=== PATIENT | female | born 1995 | race Caucasian/White ===

== ENCOUNTER 2017-11-11 21:21 | Emergency (ER) | payer OTHER ==
[~2017-11-11] VITALS: Ht 149.9 cm; Wt 64.4 kg
[2017-11-11 21:22] VITALS: BP 121/76
--- NOTE | 2017-11-11 21:29 | NUR ---
PT TAKEN TO BED 4
--- NOTE | 2017-11-11 21:29 | NUR ---
PATIENT PRESENTS TO ED WITH BILATERAL LOWER BACK PAIN X4 DAYS. PT STATES ACHING/TWISTING/CRAMPING PAIN. PT SATES NO VAGINAL DRAINAGE OR CHANGE IN URINARY PATTERN. DENIES N/V/D; SKIN IS PINK/WARM/DRY; AAOX4 WITH EVEN AND STEADY GAIT; LUNGS CLEAR BL; HR EVEN AND REGULAR; PT DENIES ANY FEVER, CP, SOB, OR COUGH AT THIS TIME; PATIENT STATES PAIN OF 7/10 AT THIS TIME; VSS; PATIENT POSITIONED FOR COMFORT; HOB ELEVATED; BEDRAILS UP X2; BED DOWN. ER MD MADE AWARE OF PT STATUS. CONTINUE TO MONITOR.
[2017-11-11] MEDS ORDERED: KETOROLAC 60 MG/2 ML VIAL IM ONE (22:10)
--- NOTE | 2017-11-11 23:19 | NUR ---
Dr. Paredes evaluating paient at bedside.
[2017-11-11 23:30] VITALS: BP 121/76
--- NOTE | 2017-11-11 23:30 | NUR ---
Patient discharged with v/s stable. Written and verbal after care instructions given and explained. Patient verbalized understanding. Ambulatory with steady gait. All questions addressed prior to discharge. Advised to follow up with PMD.
== END 2017-11-11 23:30 | disposition home or self-care (01) ==
LOC: MED 21:21
DX: M54.5 Low back pain (principal)
CPT/HCPCS: 81025; 96372; 99283; J1885

== ENCOUNTER 2021-01-07 12:11 | Emergency (ER) | payer OTHER ==
[~2021-01-07] VITALS: Ht 149.9 cm; Wt 63.5 kg
[2021-01-07 12:38] VITALS: BP 120/82
[2021-01-07] MEDS ORDERED: IBUP-2213 PO (13:26)
[2021-01-07 13:58] VITALS: BP 120/82
== END 2021-01-07 13:59 | disposition home or self-care (01) ==
LOC: MED 12:11
DX: U07.1 COVID-19 (principal)
CPT/HCPCS: 99283; U0003

== ENCOUNTER 2021-04-12 12:41 | Emergency (ER) | payer OTHER ==
[~2021-04-12] VITALS: Ht 149.9 cm; Wt 63.5 kg
[~2021-04-12 12:41] MED LIST: IBUP-2213 PO
[2021-04-12 12:49] VITALS: BP 114/80
--- NOTE | 2021-04-12 12:49 | NUR ---
DR RODRÍGUEZ AT BEDSIDE EVALUATING PT
[2021-04-12] MEDS ORDERED: NACL 0.9% 1,000 ML IV ONE (12:55)
--- NOTE | 2021-04-12 13:03 | NUR ---
XRAY AT BEDSIDE
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
--- NOTE | 2021-04-12 13:11 | NUR ---
Blood sample collected, handed to CPT Juan at ER bedside
--- NOTE | 2021-04-12 13:11 | NUR ---
EMT at bedside for EKG
[2021-04-12 13:20] LABS: BASOPHILS % (AUTO) 0.3 % (0.0-2.0); EOSINOPHILS # (AUTO) 0.1 K/uL (0-0.4); EOSINOPHILS % (AUTO) 1.1 % (0.0-4.0); HEMATOCRIT 35.4 % (36-48); HEMOGLOBIN 11.7 g/dL (12.0-16.0); LYMPHOCYTES # (AUTO) 1.9 K/uL (2.5-16.5); LYMPHOCYTES % (AUTO) 26.2 % (20.5-51.1); MEAN CORPUSCULAR HEMOGLOBIN 28 pg (27-31); MEAN CORPUSCULAR HGB CONC 33 g/dL (33-37); MEAN CORPUSCULAR VOLUME 85.2 fL (80-94); MONOCYTES # (AUTO) 0.4 K/uL (0.8-1.0); MONOCYTES % (AUTO) 5.8 % (1.7-9.3); NEUTROPHILS # (AUTO) 4.9 K/uL (1.8-7.7); NEUTROPHILS % (AUTO) 66.6 % (42.2-75.2); PLATELET COUNT (AUTO) 241 K/uL (140-450); RED BLOOD CELL COUNT(AUTO) 4.16 MIL/uL (4.20-5.40); RED CELL DISTRIBUTION WIDTH 14.5 % (11.6-13.7); WHITE BLOOD COUNT (AUTO) 7.4 K/uL (4.8-10.8)
[2021-04-12 13:36] LABS: ALBUMIN 3.2 g/dL (3.4-5.0); ANION GAP 11.6 (8-16); CARBON DIOXIDE 27.1 mmol/L (21-32); CREATININE 0.7 mg/dL (0.6-1.3); POTASSIUM 3.7 mmol/L (3.5-5.1); TOTAL BILIRUBIN 0.2 mg/dL (0.0-1.0)
--- NOTE | 2021-04-12 13:52 | NUR ---
PT UNABLE TO GIVE URINE AT THIS TIME
--- NOTE | 2021-04-12 14:28 | NUR ---
Patient discharged with v/s stable. Written and verbal after care instructions given and explained. Patient verbalized understanding. Ambulatory with FRIEND to car. All questions addressed prior to discharge. Advised to follow up with PMD.
[2021-04-12 14:29] VITALS: BP 114/80
== END 2021-04-12 14:28 | disposition home or self-care (01) ==
LOC: MED 12:41
DX: S00.511A Abrasion of lip, initial encounter (principal); R55 Syncope and collapse; F15.90 Other stimulant use, unspecified, uncomplicated; Z79.899 Other long term (current) drug therapy; W18.30XA Fall on same level, unspecified, initial encounter; Y93.89 Activity, other specified; Y92.89 Other specified places as the place of occurrence of the external cause; Y99.8 Other external cause status
CPT/HCPCS: 36415; 71045; 80053; 81025; 84484; 85025; 93005; 96360; 99285; Q0092